=== PATIENT | male | born 1965 | race Caucasian/White ===

== ENCOUNTER 2016-12-25 22:17 | Observation (INO) | payer BC, OTHER ==
[2016-12-25 22:38] VITALS: BMI 25.0
--- NOTE | 2016-12-25 22:45 | PDOC ---
History of Present Illness - General History Source: Patient, Family (, mother ) Exam Limitations: No Limitations - History of Present Illness Initial Comments: 12/25/16 23:39 The patient is a 51 year old male, with a significant past medical history of asthma and anxiety, who presents to the emergency department with left shoulder pain and intermittent chest pain since yesterday but worsening today. The patient reports that he went to work today and felt generally unwell. Throughout the day, he reports intermittently feeling lightheaded, diaphoretic, short of breath and nauseous. He reports that after work today, he went to his mothers house for dinner. While there, he experienced a couple episodes of chest pain so he decided to go to the ED for evaluation. The patient denies fever, chills, cough, vomiting, diarrhea or abdominal pain. The patient denies any recent long travel or any lower extremity edema. The patient states that he takes Singulair and Zyrtec daily for his asthma and seasonal allergies. The patient admits that it has approximately 5 years since he has had a regular checkup with his doctor. , mother are with the patient in the ED. Allergies: None reported. Past Surgical History: None reported. Family History: [place] (grandfather, age 59, ) Social History: The patient works in plumbing/heating. Non smoker. Denies alcohol or drug use. PCP: Dr. Dhillon Compliance Testing Analyst: Dr. Paris <Nadeen Chowdary - Last Filed: 12/26/16 00:37> <Tj Aguilar - Last Filed: 12/26/16 00:57> - General Chief Complaint: Pain, Acute Stated Complaint: LT SHOULDER PAIN Time Seen by Provider: 12/25/16 22:45 Past History <Nadeen Chowdary - Last Filed: 12/26/16 00:37> - Past Medical History Asthma: Yes - Psycho/Social/Smoking Cessation Hx Suicidal Ideation: No Smoking History: Never smoked <Tj Aguilar - Last Filed: 12/26/16 00:57> - Past Medical History Allergies/Adverse Reactions: Allergies Allergy/AdvReac Type Severity Reaction Status Date / Time No Known Allergies Allergy Verified 12/25/16 22:54 Home Medications: Ambulatory Orders Cetirizine HCl [Zyrtec -] 10 mg PO DAILY 12/25/16 Montelukast Na [Singulair -] 10 mg PO HS 12/25/16 Review of Systems - Review of Systems Able to Perform ROS?: Yes Constitutional: No: Chills, Fever Cardiac (ROS): Yes: Chest Pain, Lightheadedness. No: Edema ABD/GI: Yes: Nausea. No: Vomiting Musculoskeletal: Yes: Muscle Pain Neurological: No: Headache All Other Systems: Reviewed and Negative <Tj Aguilar - Last Filed: 12/26/16 00:57> *Physical Exam - Vital Signs Last Vital Signs Temp Pulse Resp BP Pulse Ox 97.7 F 91 H 18 151/105 98 12/25/16 22:36 12/25/16 22:36 12/25/16 22:36 12/25/16 22:36 12/25/16 22:36 - Physical Exam Comments: 12/25/16 23:19 GENERAL: Slightly anxious. The patient is awake, alert, and fully oriented, in no acute distress. HEAD: Normal with no signs of trauma. EYES: Pupils equal, round and reactive to light, extraocular movements intact, sclera anicteric, conjunctiva clear with no pallor. ENT: Ears normal, nares patent, oropharynx clear without exudates. Moist mucous membranes. NECK: Normal range of motion, supple without lymphadenopathy, JVD, or masses. LUNGS: Breath sounds equal, clear to auscultation bilaterally. No wheeze/ crackles. HEART: Regular rate and rhythm, normal S1 and S2 without murmur or rub. ABDOMEN: Soft/nontender/nondistended. BS wnl. No guarding or rebound. No palpable masses. No hepatosplenomegaly. EXTREMITIES: Normal range of motion, no edema. No clubbing or cyanosis. No cords , erythema, or tenderness. NEUROLOGICAL: Cranial nerves II through XII grossly intact. Normal speech, normal gait. PSYCH: Normal mood, normal affect. SKIN: Warm, dry, normal turgor, no rashes or lesions noted. <Nadeen Chowdary - Last Filed: 12/26/16 00:37> - Vital Signs Last Vital Signs Temp Pulse Resp BP Pulse Ox 97.7 F 91 H 18 151/105 98 12/25/16 22:36 12/25/16 22:36 12/25/16 22:36 12/25/16 22:36 12/25/16 22:36 <Tj Aguilar - Last Filed: 12/26/16 00:57> Heart Score/ECG Review - History History: Moderately suspicious - Electrocardiogram EKG: Normal - Age Age: 45-65 - Risk Factors Based on the list above the patient has:: 1-2 risk factors - Troponin Troponin: </= normal limit - Score Heart Score - Total: 3 #1 ECG reviewed & interpreted by me at: 22:45 General ECG Interpretation: Sinus Rhythm, Normal Rate (89), Normal Intervals ( qtc 442, IRBBB), No acute ischemic changes <Tj Aguilar - Last Filed: 12/26/16 00:57> ED Treatment Course - LABORATORY CBC & Chemistry Diagram: 12/25/16 22:53 12/25/16 22:53 - Medications Given in the ED: ED Medications Discontinued Medications Generic Name Dose Route Start Last Admin Trade Name Freq PRN Reason Stop Dose Admin Aspirin 162 mg 12/25/16 22:46 12/25/16 23:03 Asa - PO 12/25/16 22:47 162 mg ONCE ONE Administration <Nadeen Chowdary - Last Filed: 12/26/16 00:37> - LABORATORY CBC & Chemistry Diagram: 12/25/16 22:53 12/25/16 22:53 <Tj Aguilar - Last Filed: 12/26/16 00:57> Medical Decision Making - Medical Decision Making 12/25/16 23:00 A portion of this note was documented by scribe services under my direction. I have reviewed the details of the note, within reason, and agree with the documentation with the following case summary and management plan written by me. 51-year-old male with no known past medical history but also with lack of PMD follow-up for several years presents with constellation of symptoms over the last day including left shoulder pain, intermittent chest pain, lightheadedness and nausea, intermittent diaphoresis, and generalized shortness of breath. Never had a stress test, denies smoking, grandfather from [place] at 59. Vital signs normal. Slightly anxious. Exam is normal. 51-year-old male with no known past medical history presents with intermittent chest pain and lightheadedness and shortness of breath over the last one to 2 days. No evidence of asthma exacerbation, heart score is at least 3, EKG is not acutely ischemic. Given risk factors and history, will need cardiac workup. Labs EKG, chest x-ray Aspirin Will admit for telemetry and ACS rule out 12/26/16 00:00 CBC normal, on my preliminary review of the chest x-ray, there is no acute abnormality. 12/26/16 00:41 Troponin negative, looks and feels well, family at bedside. Will proceed with admission. 12/26/16 00:56 Accepted for obs tele by Dr. Urias, on service. <Tj Aguilar - Last Filed: 12/26/16 00:57> *DC/Admit/Observation/Transfer - Attestations Scribe Attestion: 12/25/16 23:17 Documentation prepared by Nadeen Chowdary, acting as medical pathologist for Tj Aguilar MD. <Nadeen Chowdary - Last Filed: 12/26/16 00:37> - Discharge Dispostion Admit: Yes <Tj Aguilar - Last Filed: 12/26/16 00:57> Diagnosis at time of Disposition: Precordial chest pain - Discharge Dispostion Condition at time of disposition: Fair
[2016-12-25] MEDS ORDERED: ASPIRIN 81 MG CHEWABLE TABLETS PO ONE (22:46)
[2016-12-25] MEDS ORDERED: ASPIRIN 81 MG CHEWABLE TABLETS ONE (23:05)
[2016-12-25 23:33] LABS: BASOPHIL 0.3 % (0-2.0); EOSINOPHIL 1.7 % (0-4.5); MCH 28.2 pg (25.7-33.7); MCHC 33.5 g/dl (32.0-35.9); MEAN CELL VOLUME 84.2 fl (80-96); MEAN PLT VOLUME 9.1 fl (7.5-11.1); NEUTROPHILS 71.7 % (42.8-82.8); PLATELET COUNT 170 K/MM3 (134-434); RDW 12.9 % (11.9-15.9); WHITE BLOOD COUNT 10.8 K/mm3 (4.0-10.0)
[2016-12-25 23:46] LABS: INR 1.13 (0.82-1.09); PROTHROMBIN TIME (PATIENT) 12.5 SEC (9.98-11.88)
[2016-12-26 00:25] LABS: ALBUMIN 4.4 g/dl (3.4-5.0); ANION GAP 12 (8-16); BILIRUBIN,TOTAL 0.5 mg/dL (0.2-1.0); CALCIUM 9.5 mg/dL (8.5-10.1); CO2 27 mmol/L (21-32); CREATININE 1.1 mg/dL (0.7-1.3); GLUCOSE,RANDOM 87 mg/dL (74-106); SGOT/AST 24 U/L (15-37); SGPT/ALT 44 U/L (12-78); TOT PROT 7.9 g/dl (6.4-8.2)
[2016-12-26 00:28] LABS: ALK PHOS 80 U/L (45-117); TROPONIN I < 0.02 ng/ml (0.00-0.05)
--- NOTE | 2016-12-26 01:48 | HP ---
<Brandt Lainez - Last Filed: 12/26/16 02:47> CHIEF COMPLAINT: Chest Pain PCP: Dr. Dhillon HISTORY OF PRESENT ILLNESS: The patient is a 51 year old male who presented to the emergency department with left shoulder pain and intermittent chest pain since yesterday but worsening today. The patient reported that he went to work today and felt generally unwell. He reported that after work today, he went to his mothers house for dinner. While there, he experienced a couple episodes of chest pain so he decided to go to the ED for evaluation. Recent Travel: Denied PAST MEDICAL HISTORY: Asthma, Anxiety PAST SURGICAL HISTORY: Left ankle surgery 2003. Hospitalizations: As above Social History: Smoking: Occasional marijuana smoker Alcohol: Drinks on weekends Drugs: Denied Family History: [place] (grandfather, age 59, ) Allergies No Known Allergies Allergy (Verified 12/25/16 22:54) HOME MEDICATIONS: Home Medications Medication Instructions Recorded Cetirizine HCl [Zyrtec -] 10 mg PO DAILY 12/25/16 Montelukast Na [Singulair -] 10 mg PO HS 12/25/16 REVIEW OF SYSTEMS CONSTITUTIONAL: Present: Diaphoresis Absent: fever, chills, generalized weakness, malaise, loss of appetite, weight change HEENT: Absent: rhinorrhea, nasal congestion, throat pain, throat swelling, difficulty swallowing, mouth swelling, ear pain, eye pain, visual changes CARDIOVASCULAR: Present: Mild chest pain Absent: Syncope, palpitations, irregular heart rate, lightheadedness, peripheral edema RESPIRATORY: Absent: cough, shortness of breath, dyspnea with exertion, orthopnea, wheezing, stridor, hemoptysis GASTROINTESTINAL: Absent: abdominal pain, abdominal distension, nausea, vomiting, diarrhea, constipation, melena, hematochezia GENITOURINARY: Absent: dysuria, frequency, urgency, hesitancy, hematuria, flank pain, genital pain MUSCULOSKELETAL: Present: arthralgia Absent: myalgia, joint swelling, back pain, neck pain SKIN: Absent: rash, itching, pallor HEMATOLOGIC/IMMUNOLOGIC: Absent: easy bleeding, easy bruising, lymphadenopathy, frequent infections ENDOCRINE: Absent: unexplained weight gain, unexplained weight loss, heat intolerance, cold intolerance NEUROLOGIC: Absent: headache, focal weakness or paresthesias, dizziness, unsteady gait, seizure, mental status changes, bladder or bowel incontinence PSYCHIATRIC: Absent: anxiety, depression, suicidal or homicidal ideation, hallucinations. PHYSICAL EXAMINATION GENERAL: Awake, alert, and fully oriented, in no acute distress. HEENT: Atraumatic. Moist mucosa. Normocephalic. No sinus tenderness. No LAD. NECK: No JVD. No thyroid masses. Supple. LUNGS: Clear to auscultation bilaterally. No wheezing, rhonchi or rales. HEART: Regular rate and rhythm, normal S1 and S2, no murmurs, rubs or gallops, peripheral pulses normal and equal bilaterally. ABDOMEN: Soft, nontender, normoactive bowel sounds. No guarding, no rebound. No Masses. MUSCULOSKELETAL: No joint tenderness or erythema. No muscle tenderness. Normal muscle bulk and tone. EXTREMITIES: Normal inspection, No edema. No clubbing or cyanosis. Moves all extremities. Normal range of motion. NEUROLOGICAL: Normal speech, no focal sensorimotor deficits. SKIN: Warm, dry, normal turgor, no rashes or lesions noted. IMAGING: ECG Impression: Sinus Rhythm, Normal Rate (89), Normal Intervals (qtc 442, IRBBB), No acute ischemic changes CXR Impression: Within normal limits ASSESSMENT/PLAN: 1.Chest Pain low risk for ND likely secondary to musculoskeletal source. Heart Score 3-4 family history of CAD, smoker, moderately suspicious history - Admit to observation -r/o ACS -trend troponin -Repeat ECG -Order asa 81mg daily 2. Asthma controlled -Albuterol PRN -Singulair 3. DVT PPX -SCD <Giacomo Urias - Last Filed: 12/26/16 06:15> CHIEF COMPLAINT: PCP: HISTORY OF PRESENT ILLNESS: ER course was notable for: (1) (2) (3) Recent Travel: PAST MEDICAL HISTORY: PAST SURGICAL HISTORY: Social History: Smoking: Alcohol: Drugs: Family History: Allergies No Known Allergies Allergy (Verified 12/25/16 22:54) HOME MEDICATIONS: Home Medications Medication Instructions Recorded Cetirizine HCl [Zyrtec -] 10 mg PO DAILY 12/25/16 Montelukast Na [Singulair -] 10 mg PO HS 12/25/16 REVIEW OF SYSTEMS CONSTITUTIONAL: Absent: fever, chills, diaphoresis, generalized weakness, malaise, loss of appetite, weight change HEENT: Absent: rhinorrhea, nasal congestion, throat pain, throat swelling, difficulty swallowing, mouth swelling, ear pain, eye pain, visual changes CARDIOVASCULAR: Absent: chest pain, syncope, palpitations, irregular heart rate, lightheadedness , peripheral edema RESPIRATORY: Absent: cough, shortness of breath, dyspnea with exertion, orthopnea, wheezing, stridor, hemoptysis GASTROINTESTINAL: Absent: abdominal pain, abdominal distension, nausea, vomiting, diarrhea, constipation, melena, hematochezia GENITOURINARY: Absent: dysuria, frequency, urgency, hesitancy, hematuria, flank pain, genital pain MUSCULOSKELETAL: Absent: myalgia, arthralgia, joint swelling, back pain, neck pain SKIN: Absent: rash, itching, pallor HEMATOLOGIC/IMMUNOLOGIC: Absent: easy bleeding, easy bruising, lymphadenopathy, frequent infections ENDOCRINE: Absent: unexplained weight gain, unexplained weight loss, heat intolerance, cold intolerance NEUROLOGIC: Absent: headache, focal weakness or paresthesias, dizziness, unsteady gait, seizure, mental status changes, bladder or bowel incontinence PSYCHIATRIC: Absent: anxiety, depression, suicidal or homicidal ideation, hallucinations. PHYSICAL EXAMINATION GENERAL: Awake, alert, and fully oriented, in no acute distress. HEAD: Normal with no signs of trauma. EYES: Pupils equal, round and reactive to light, extraocular movements intact, sclera anicteric, conjunctiva clear. No lid lag. EARS, NOSE, THROAT: Ears normal, nares patent, oropharynx clear without exudates. Moist mucous membranes. NECK: Normal range of motion, supple without lymphadenopathy, JVD, or masses. LUNGS: Breath sounds equal, clear to auscultation bilaterally. No wheezes, and no crackles. No accessory muscle use. HEART: Regular rate and rhythm, normal S1 and S2 without murmur, rub or gallop. ABDOMEN: Soft, nontender, not distended, normoactive bowel sounds, no guarding, no rebound, no masses. No hepatomegaly or splenomegaly. MUSCULOSKELETAL: Normal range of motion at all joints. No bony deformities or tenderness. No CVA tenderness. UPPER EXTREMITIES: 2+ pulses, warm, well-perfused. No cyanosis. No clubbing. Cap refill <2 seconds. No peripheral edema. LOWER EXTREMITIES: 2+ pulses, warm, well-perfused. No calf tenderness. No peripheral edema. NEUROLOGICAL: Cranial nerves II-XII intact. Normal speech. Normal gait. PSYCHIATRIC: Cooperative. Good eye contact. Appropriate mood and affect. SKIN: Warm, dry, normal turgor, no rashes or lesions noted. ASSESSMENT/PLAN: Visit type - Emergency Visit Emergency Visit: Yes ED Registration Date: 12/26/16 Care time: The patient presented to the Emergency Department on the above date and was hospitalized for further evaluation of their emergent condition. - New Patient This patient is new to me today: Yes Date on this admission: 12/26/16 - Critical Care Critical Care patient: No
[2016-12-26] MEDS ORDERED: ASPIRIN 81 MG CHEWABLE TABLETS PO SCH (03:00)
[2016-12-26 05:42] VITALS: TEMP 97.4
[2016-12-26 08:18] LABS: BASOPHIL 0.2 % (0-2.0); EOSINOPHIL 3.8 % (0-4.5); MCH 28.3 pg (25.7-33.7); MCHC 33.6 g/dl (32.0-35.9); MEAN CELL VOLUME 84.3 fl (80-96); MEAN PLT VOLUME 8.6 fl (7.5-11.1); NEUTROPHILS 59.3 % (42.8-82.8); PLATELET COUNT 145 K/MM3 (134-434); WHITE BLOOD COUNT 7.6 K/mm3 (4.0-10.0)
[2016-12-26 08:48] LABS: ALBUMIN 4.1 g/dl (3.4-5.0); ANION GAP 10 (8-16); BILIRUBIN,TOTAL 0.8 mg/dL (0.2-1.0); CHOLESTEROL 181 mg/dL (50-200); CO2 30 mmol/L (21-32); GLUCOSE,RANDOM 80 mg/dL (74-106); SGOT/AST 22 U/L (15-37); TOT PROT 7.4 g/dl (6.4-8.2)
[2016-12-26 08:50] LABS: ALK PHOS 78 U/L (45-117); SGPT/ALT 39 U/L (12-78)
[2016-12-26 11:30] VITALS: BP 143/85; PULSE 72
--- NOTE | 2016-12-26 12:06 | DS ---
Physical Examination Vital Signs: Vital Signs Temperature 97.4 F L 12/26/16 05:41 Pulse Rate 72 12/26/16 10:00 Respiratory Rate 20 12/26/16 10:00 Blood Pressure 143/85 12/26/16 10:00 O2 Sat by Pulse Oximetry (%) 99 12/26/16 10:00 Labs: CBC, BMP 12/26/16 05:50 12/26/16 05:50 Discharge Summary Reason For Visit: PRECORDIAL PAIN Current Active Problems Precordial chest pain (Acute) Hospital Course: 51 year old man with anxiety, asthma who presented complaining of left sided shoulder pain. Pt states he's had shoulder issues for many years and it began bothering him recently. He's also had a URI symptoms as of late and was pressured by his family to seek medical attention. He began to feel anxious and came to the ED. Pt was admitted to medicine to rule out ACS. EKG showed no ischemic changes, troponins were negative and pt had no events on telemetry. Pt will be discharged with instruction to follow up with PMD as an outpatient. I spent greater than 40 minutes preparing this discharge - Instructions Disposition: HOME - Home Medications Comprehensive Discharge Medication List: Ambulatory Orders Cetirizine HCl [Zyrtec -] 10 mg PO DAILY 12/25/16 Montelukast Na [Singulair -] 10 mg PO HS 12/25/16 This patient is new to me today: Yes Date on this admission: 12/26/16 Emergency Visit: Yes ED Registration Date: 12/26/16 Care time: The patient presented to the Emergency Department on the above date and was hospitalized for further evaluation of their emergent condition. Critical Care patient: No - Discharge Referral Referred to [facility] Med P.C.: No
[2016-12-26] MEDS ORDERED: MONTELUKAST NA 10 MG TABLET PO SCH (22:00)
--- NOTE | 2016-12-26 22:00 | EKG ---
Test Reason : Blood Pressure : / mmHG Vent. Rate : 089 BPM Atrial Rate : 089 BPM P-R Int : 148 ms QRS Dur : 092 ms QT Int : 364 ms P-R-T Axes : 047 -20 008 degrees QTc Int : 442 ms NORMAL SINUS RHYTHM NORMAL ECG NO PREVIOUS ECGS AVAILABLE Confirmed by TRUDY BAIN MD ([id number]) on 12/26/2016 9:59:37 PM Referred By: Confirmed By:TRUDY BAIN MD
== END 2016-12-26 13:42 | disposition home or self-care (01) ==
LOC: JER 22:17 → JERBED 12-26 00:57 → J4W 12-26 03:09
PROVIDERS: ADMIT Internal Medicine; ATTEND Internal Medicine
DX: R07.2 Precordial pain (principal); J45.909 Unspecified asthma, uncomplicated; F41.9 Anxiety disorder, unspecified
CPT/HCPCS: 36415; 71010-TC; 80053; 82465; 82550; 83036; 83735; 84484; 85025; 85610; 93005; 93010; 99285-25; G0378

== ENCOUNTER 2018-01-06 09:38 | Emergency (ER) | payer SELFPAY ==
[2018-01-06 09:50] VITALS: BMI 25.0
--- NOTE | 2018-01-06 10:14 | PDOC ---
History of Present Illness - General History Source: Patient, Spouse Exam Limitations: No Limitations - History of Present Illness Initial Comments: 01/06/18 11:15 Patient is a 57 year old male with a significant past medical history of who presents to the ED with complaints of Shortness of breath for the past several days. Patient reports experiencing cold like symptoms 1 week ago that he states began to subside as time went on. He endorses nasal congestion, cough productive of yellowish sputum for about a week, went ot the PMD who gave him a zpack and steroid taper. He reports his sob/cough is persistent, although it feels like he cannot bring up his sputum now, and feels anxious. stating he used his inhaler with minimal improvement. Pt endorsed some fevers previously but has since resolved. Denies chest pain, nausea, vomiting. Denies contact with sick individuals, out of state travelling. Denies any cp, ackerman, leg swelling, hemotpysis. Denies constipation, diarrhea, dysuria, hematuria. Denies any other symptoms. Family with similar symptoms (uri/cough). Allergies: Nothing Social history: Lives with and children. No smoking. No alcohol. No illicit drugs. FamHx: [place] (grandfather aged 59, ). Surgical history: None PMD: Dr. Dhillon. Financial Internship: Dr. Paris <Tyrone Holloway - Last Filed: 01/06/18 11:15> <Srinivas Ward - Last Filed: 01/06/18 12:51> - General Chief Complaint: Shortness of Breath Stated Complaint: worsening SOB Time Seen by Provider: 01/06/18 10:07 Past History <Tyrone Holloway - Last Filed: 01/06/18 11:15> - Past Medical History Asthma: Yes COPD: No - Suicide/Smoking/Psychosocial Hx Smoking History: Never smoked Have you smoked in the past 12 months: No Hx Alcohol Use: No Drug/Substance Use Hx: No <Srinivas Ward - Last Filed: 01/06/18 12:51> - Past Medical History Allergies/Adverse Reactions: Allergies Allergy/AdvReac Type Severity Reaction Status Date / Time No Known Allergies Allergy Verified 01/06/18 09:46 Home Medications: Ambulatory Orders Cetirizine HCl [Zyrtec -] 10 mg PO DAILY 12/25/16 Montelukast Na [Singulair -] 10 mg PO HS 12/25/16 Azithromycin [Zithromax 1gm Gil -] 1 gm PO ONCE #1 packet 12/26/16 Loratadine [Claritin] 10 mg PO DAILY #7 tablet 12/26/16 predniSONE [Deltasone -] 60 mg PO DAILY #9 tablet 01/06/18 Review of Systems - Review of Systems Able to Perform ROS?: Yes Comments:: 01/06/18 11:15 CONSTITUTIONAL: No reported: Fever, Chills, Diaphoresis, Generalized Weakness, Malaise, Loss of Appetite HEENT: No reported: Rhinorrhea, Nasal Congestion, Throat Pain, Throat Swelling, Difficulty Swallowing, Mouth Swelling, Ear Pain, Eye Pain, Visual Changes CARDIOVASCULAR: No reported: Chest Pain, Syncope, Palpitations, Irregular Heart Rate, Lightheadedness, Peripheral Edema RESPIRATORY: +shortness of breath. +cough No reported: SOB with Exertion, Orthopnea, Wheezing, Stridor, Hemoptysis GASTROINTESTINAL: No reported: Abdominal pain, Abdominal Distension, Nausea, Vomiting, Diarrhea, Constipation, Melena, Hematochezia GENITOURINARY: No reported: Dysuria, Frequency, Urgency, Hesitancy, Flank Pain, Genital Pain MUSCULOSKELETAL: No reported: Myalgia, Arthralgia, Joint Swelling, Back pain, Neck Pain SKIN: No reported: Rash, Itching, Pallor HEMATOLOGIC/IMMUNOLOGIC: No reported: Easy Bleeding, Easy Bruising, Lymphadenopathy, Frequent infections ENDOCRINE: No reported: Unexplained Weight Gain, Unexplained Weight Loss, Heat Intolerance , Cold Intolerance NEUROLOGIC: No reported: Headache, Focal Weakness, Paresthesias, Vertigo, Lightheadedness, Unsteady Gait, Seizure, Mental Status Changes, Incontinence PSYCHIATRIC: No reported: Anxiety, Depression All Other Systems: Reviewed and Negative <Tyrone Holloway - Last Filed: 01/06/18 11:15> *Physical Exam - Vital Signs Last Vital Signs Temp Pulse Resp BP Pulse Ox 97.8 F 87 22 149/103 99 01/06/18 09:46 01/06/18 09:46 01/06/18 09:46 01/06/18 09:46 01/06/18 09:46 - Physical Exam Comments: 01/06/18 11:15 GENERAL: The patient is awake, alert, and fully oriented, Nontoxic - in no acute distress. HEAD: Normocephalic, atraumatic. EYES: extraocular movements intact, sclera anicteric, conjunctiva clear. ENT: Normal voice, Moist mucous membranes. NECK: Normal range of motion, No JVD LUNGS: +Scattered wheezing, no acute respiratory distress, speaking in complete sentences. Breath sounds equal,no rhonchi, no rales. HEART: Regular rate and rhythm, normal S1 and S2 without murmur, rub or gallop. ABDOMEN: Soft, nontender, normoactive bowel sounds. No guarding, no rebound. No masses. No CVA tenderness EXTREMITIES: Negative homans signs. Normal range of motion, no edema. No clubbing or cyanosis. No cords, erythema, or tenderness. NEUROLOGICAL: No facial asymmetry, Normal speech, normal gait. PSYCH: Normal mood, normal affect. SKIN: Warm, Dry, normal turgor. <Tyrone Holloway - Last Filed: 01/06/18 11:15> - Vital Signs Last Vital Signs Temp Pulse Resp BP Pulse Ox 97.8 F 87 22 149/103 99 01/06/18 09:46 01/06/18 09:46 01/06/18 09:46 01/06/18 09:46 01/06/18 09:46 <Srinivas Ward - Last Filed: 01/06/18 12:51> Heart Score/ECG Review - ECG Impressions Comment:: 01/06/18 10:47 Twelve-lead EKG was performed and reviewed by me. There is normal sinus rhythm with a normal rate. Rate of 77 The intervals are normal. There is normal R wave progression Nonspecific ST wave changes <Srinivas Ward - Last Filed: 01/06/18 12:51> ED Treatment Course - Medications Given in the ED: ED Medications Discontinued Medications Generic Name Dose Route Start Last Admin Trade Name Freq PRN Reason Stop Dose Admin Albuterol/Ipratropium 1 amp 01/06/18 10:34 01/06/18 11:04 Duoneb - NEB 01/06/18 10:35 1 amp ONCE ONE Administration <Tyrone Holloway - Last Filed: 01/06/18 11:15> - LABORATORY CBC & Chemistry Diagram: 01/06/18 11:48 01/06/18 11:48 <Srinivas Ward - Last Filed: 01/06/18 12:51> Medical Decision Making - Medical Decision Making 01/06/18 10:41 52-year-old gentleman history of asthma presenting with a complaint of persistent shortness of breath. The patient states that he had a your own last week with congestion, cough productive of yellowish sputum, was treated with a Z -Gil and steroids by his primary care doctor, completed in meds and his cough has improved slightly however feels like he can no longer expectorate. No cp, ackerman, hemoptysis, leg swelling. on exam pt appears well, in no distress. mild wheezing on exam suspect bronchospasm exacerbated by URI will give duoneb will ck xray tor /o pna rx guafenisin A portion of this note was documented by scribe services under my direction. I have reviewed the details of the note, within reason, and agree with the documentation with the following case summary and management plan written by me 01/06/18 12:44 labs reviewed cxr neg pt feeling better pt ambulating the entire length of the ED without any dyspnea will hernan paris anticipate dc 01/06/18 12:46 case hernan paris recommends pred 60mg daily for the next 3 days, fu with him on Tuesday for rest of the taper pt agrees with plan I discussed the physical exam findings, ancillary test results and final diagnoses with the patient. I answered all of the patient's questions. The patient was satisfied with the care received and felt comfortable with the discharge plan and treatment plan. The patient will call their primary care physician within 24 hours to arrange follow-up and will return to the Emergency Department with any new, persistent or worsening symptoms. <Srinivas Ward - Last Filed: 01/06/18 12:51> *DC/Admit/Observation/Transfer - Attestations Scribe Attestion: 01/06/18 11:15 Documentation prepared by Tyrone Holloway, acting as medical device sales representative for Srinivas Ward MD, /DO. <Tyrone Holloway - Last Filed: 01/06/18 11:15> - Discharge Dispostion Admit: No <Srinivas Ward - Last Filed: 01/06/18 12:51> Diagnosis at time of Disposition: Bronchitis, Cough - Discharge Dispostion Disposition: HOME Condition at time of disposition: Improved - Referrals Referrals: Tray Schumacher MD [Primary Care Provider] - Nayan Paris MD [Staff Physician] - - Patient Instructions Printed Discharge Instructions: DI for Cough -- Adult, DI for Viral Syndrome Additional Instructions: Return to the emergency department immediately with ANY new, persistent or worsening symptoms. You MUST call and follow up with Dr. Paris on Tuesday for further evaluation of your symptoms. Results were discussed with you. Please make sure your doctor reviews the results of your emergency evaluation. Print Language: ICELANDIC
[2018-01-06] MEDS ORDERED: ALBUTEROL SO4 2.5/IPRATROPIUM 0.5 INH SOL 3 ML VIAL.NEB. NEB ONE ×3 (10:34→10:55)
[2018-01-06] MEDS: methylPREDNISolone NA SUCC 125 MG/2 ML VIAL IVPUSH ONE ×2 (11:00→11:15)
[2018-01-06] MEDS ORDERED: methylPREDNISolone NA SUCC 125 MG/2 ML VIAL ONE (11:16)
[2018-01-06 11:59] LABS: BASO % 0.3 % (0-2.0); EOS % 0.4 % (0-4.5); HEMATOCRIT 46.3 % (35.4-49); HEMOGLOBIN 15.3 GM/dL (11.7-16.9); LYMPH % 16.6 % (8-40); MCH 27.7 pg (25.7-33.7); MCHC 33.1 g/dl (32.0-35.9); MEAN CELL VOLUME 83.7 fl (80-96); MEAN PLT VOLUME 7.6 fl (7.5-11.1); MONO % 9.2 % (3.8-10.2); NEUT % 73.5 % (42.8-82.8); PLATELET COUNT 173 K/MM3 (134-434); RBC 5.53 M/mm3 (4.00-5.60); WHITE BLOOD COUNT 6.6 K/mm3 (4.0-10.0)
[2018-01-06] MEDS ORDERED: guaiFENesin 200 MG/10 ML 10 ML UNIT-DOSE CUPS PO ONE (12:20)
[2018-01-06 12:33] LABS: ANION GAP 12 (8-16); BILIRUBIN,TOTAL 0.6 mg/dL (0.2-1.0); BLOOD UREA NITROGEN 10 mg/dL (7-18); CALCIUM 9.2 mg/dL (8.5-10.1); CHLORIDE 102 mmol/L (98-107); CO2 24 mmol/L (21-32); CREATININE 1.1 mg/dL (0.7-1.3); GLUCOSE,RANDOM 145 mg/dL (74-106); POTASSIUM 3.5 mmol/L (3.5-5.1); SGOT/AST 23 U/L (15-37); SGPT/ALT 52 U/L (12-78); SODIUM 138 mmol/L (136-145); TOT PROT 8.1 g/dl (6.4-8.2)
[2018-01-06 12:34] LABS: ALK PHOS 78 U/L (45-117)
[2018-01-06 13:47] VITALS: BP 140/98; PULSE 80; TEMP 98.8
--- NOTE | 2018-01-07 12:15 | EKG ---
Test Reason : Blood Pressure : / mmHG Vent. Rate : 077 BPM Atrial Rate : 077 BPM P-R Int : 142 ms QRS Dur : 094 ms QT Int : 378 ms P-R-T Axes : 027 -20 012 degrees QTc Int : 427 ms NORMAL SINUS RHYTHM NORMAL ECG WHEN COMPARED WITH ECG OF 25-DEC-2016 22:45, NO SIGNIFICANT CHANGE WAS FOUND Confirmed by PEDRO MOREAU MD ([id number]) on 01/07/2018 12:15:02 PM Referred By: Confirmed By:PEDRO MOREAU MD
== END 2018-01-06 13:50 | disposition home or self-care (01) ==
LOC: JER 09:38
PROC: 3E0F7GC Introduction of Other Therapeutic Substance into Respiratory Tract, Via Natural or Artificial Opening (ICD-10-PCS; principal; 2018-01-06)
PROC: 3E0333Z Introduction of Anti-inflammatory into Peripheral Vein, Percutaneous Approach (ICD-10-PCS; 2018-01-06)
DX: J20.9 Acute bronchitis, unspecified (principal)
CPT/HCPCS: 36415; 71046-TC-FY; 80053; 85025; 93005; 93010; 99281-25